=== PATIENT | male | born 1995 | race Caucasian/White ===

== ENCOUNTER 2025-03-24 04:08 | Emergency (ER) | payer OTHER ==
[~2025-03-24] VITALS: Ht 185.4 cm; Wt 79.4 kg
[2025-03-24] MEDS ORDERED: DEXT10TA7 PO (04:41)
[2025-03-24] MEDS ORDERED: BUPR150T5 PO (04:41)
[2025-03-24 04:44] LABS: PLATELET COUNT (AUTO) 199 K/uL (152-348); RED BLOOD CELL COUNT(AUTO) 4.87 MIL/uL (4.06-5.63); RED CELL DISTRIBUTION WIDTH 12.9 % (12.1-16.2); WHITE BLOOD COUNT (AUTO) 17.2 K/uL (3.6-10.2)
[2025-03-24 04:52] LABS: CREATININE 1.2 mg/dL (0.6-1.3); SODIUM SERUM 140 mmol/L (136-145); UREA NITROGEN, BLOOD 14 mg/dL (7-18)
[2025-03-24 04:58] LABS: ASPARTATE AMINOTRANSFERASE 15 U/L (15-37); TOTAL PROTEIN, SERUM 7.9 g/dL (6.4-8.2)
[2025-03-24 07:19] VITALS: BP 114/78
[2025-03-24 07:45] VITALS: BP 110/72; O2SAT 98
== END 2025-03-24 07:46 | disposition home or self-care (01) ==
LOC: ER 04:25
DX: R07.89 Other chest pain (principal); R06.00 Dyspnea, unspecified; F41.9 Anxiety disorder, unspecified; F32.A Depression, unspecified; F90.9 Attention-deficit hyperactivity disorder, unspecified type; Z79.899 Other long term (current) drug therapy
CPT/HCPCS: 36415; 71045; 84484; 85025; A4606; A4663